=== PATIENT | male | born 2000 | race Caucasian/White ===

== ENCOUNTER 2020-11-19 16:23 | Emergency (ER) | payer OTHER ==
[~2020-11-19] VITALS: Ht 165.1 cm; Wt 63.5 kg
[2020-11-19 16:28] VITALS: Ht 165.1 cm; Wt 63.5 kg
[2020-11-19 18:58] VITALS: BP 116/73
== END 2020-11-19 18:58 | disposition home or self-care (01) ==
LOC: ED 16:23
DX: N50.811 Right testicular pain (principal)